=== PATIENT | male | born 1945 | race Caucasian/White ===

== ENCOUNTER 2017-01-15 16:12 | Inpatient (IN) ==
--- NOTE | 2017-01-15 16:38 | Cat Scan Report ---
CLINICAL INFORMATION: Code stroke COMPARISON: 11/30/2013 TECHNIQUE: Axial noncontrast-enhanced images through the brain. FINDINGS: No acute intracranial hemorrhage. No intra-axial hematoma. No focal attenuation abnormalities or areas of localized mass effect. No midline shift. There is a chronic lacunar infarction in the right basal ganglion. This is not acute but is new since 2013 Brainstem and cerebellum are negative. No extra-axial, intracranial abnormality. No subdural hematoma. No subarachnoid hemorrhage. Basilar cisterns are normal. No calvarial lesions. Temporal bones are negative. IMPRESSION: 1. No acute abnormality. 2. Nonacute right basal ganglion lacune Interpreted and Authenticated by: Americo Shahid 01/15/17
--- NOTE | 2017-01-15 16:40 | Emergency Department Note ---
Neuro HPI - General Chief Complaint: Stroke Symptoms Stated Complaint: stroke symptoms Time Seen by Provider: 01/15/17 16:36 Mode of arrival: ambulatory - History of Present Illness HPI Narrative: This patient had the sudden onset of left-sided weakness 30 minutes prior to arrival emergency room. He was so weak that he fell down and abraded his left holiness. When I initially saw him he did have some weakness in the left leg and a slight facial droop but by the time he returned from CT scan he was 100% completely back to normal. He does have a history of coronary disease with bypass grafting 6 years ago at age 65. No history of stroke. Long history of high blood pressure but he hasn't taken medication for a while. Patient used to work for [employer] and is supposed to taking aspirin and statins. No chest pain or heart irregularity. Onset (ago): minute(s) Timing confirmed by: spouse Location: speech, left face, left arm, left leg History of same: No Severity: moderate Quality: weak Improves with: time Worsens with: none Context: sudden onset On Anticoagulants: Yes (Taking a natural anticoagulant) Associated symptoms: Reports: denies other symptoms - Related Data Home Medications: Home Medications Medication Instructions Recorded Confirmed No Known Home Meds [No Known Home 01/15/17 01/15/17 Meds] Allergies/Adverse Reactions: Allergies Allergy/AdvReac Type Severity Reaction Status Date / Time acetaminophen Allergy Severe Shortness Verified 01/15/17 16:57 of Breath WITH LARGE DOSES (USE BENADRYL PREMED) amlodipine AdvReac Mild Dizziness Verified 01/15/17 19:41 Review of Systems Constitutional: Denies: fever Eyes: Denies: eye pain ENT ED: Denies: ear pain Cardiovascular: Denies: chest pain Respiratory: Denies: cough Gastrointestinal: Denies: abdominal pain Genitourinary: Denies: urgency Musculoskeletal: Denies: back pain Integumentary: Denies: rash Neurological: Denies: headache Past Medical History - Past Medical History Medical history: Reports: coronary artery disease, hyperlipidemia, hypertension Surgical history ED: Reports: angioplasty/stent, appendectomy, cholecystectomy, coronary bypass (CABG) Physical Exam - General Limitations: no limitations General appearance: alert, in no apparent distress - Head Head exam: atraumatic - Eye Eye exam: Present: normal appearance - ENT ENT exam: normal exam - Neck Neck exam: Present: normal inspection - Chest Chest inspection: Present: normal inspection - Respiratory Respiratory exam: Present: normal lung sounds bilaterally - Cardiovascular Cardiovascular exam: Present: regular rate, normal rhythm, normal heart sounds - Abdominal Exam Abdominal exam: Present: soft. Absent: distention, tenderness - Neurological Exam Neurological exam: Present: alert, oriented X3 - Expanded Neurological Exam Cranial nerves: facial sensation (V): Normal, facial palsy (VII): Normal Motor strength - LUE: 5/5 Motor strength - RUE: 5/5 Motor strength - LLE: 5/5 Motor strength - RLE: 5/5 - Psychiatric Psychiatric exam: Present: normal affect, normal mood - Skin Skin exam: Present: warm, dry, intact, normal color Course Vital Signs Temperature 99.1 F 01/15/17 16:43 Pulse Rate 75 01/15/17 16:43 Respiratory Rate 18 01/15/17 16:43 Blood Pressure 249/130 01/15/17 16:43 Pulse Oximetry (%) 97 01/15/17 16:43 Temperature 97.8 F 01/16/17 05:00 Pulse Rate 80 01/15/17 20:04 Respiratory Rate 17 01/16/17 05:59 Blood Pressure 156/104 01/16/17 05:59 Pulse Oximetry (%) 96 01/16/17 05:59 Neuro Symptoms/Deficit - Lab Data Lab results reviewed: Yes I reviewed the patient's lab results. Result diagrams: 01/16/17 04:05 01/16/17 04:05 Lab Results 01/15/17 01/15/17 01/15/17 Range/Units 16:14 16:14 16:14 WBC 8.5 (4.5-11.0) K/mcL RBC 5.56 (4.50-5.90) M/mcL Hgb 16.2 (13.5-16.5) g/dL Hct 48.0 (41.0-55.0) % POC Hct 50.0 (41.0-55.0) % MCV 86.4 (80.0-100.0) fL MCH 29.1 (26.0-34.0) pg MCHC 33.7 (31.0-36.0) g/dL RDW 12.9 (11.5-14.5) % Plt Count 266 (140-440) K/mcL MPV 9.1 (7.4-10.4) fL Gran % 53.8 (38.0-78.0) % Lymph % (Auto) 37.2 (15.5-49.0) % [place] % (Auto) 7.3 (1.0-12.0) % Eos % (Auto) 1.3 (0.0-7.0) % Baso % (Auto) 0.4 (0.0-2.0) % Gran # 4.6 (1.8-8.0) K/mcL Lymph # 3.2 (1.5-4.8) K/mcL [place] # 0.6 (0.1-0.9) K/mcL Eos # 0.1 (0.0-0.7) K/mcL Baso # 0 (0.0-0.3) K/mcL ESR (0-15) mm/hr POC PT 13.4 (11.9-14.5) sec PT (11.9-14.5) sec POC INR 1.1 (0.9-1.2) INR (0.9-1.1) APTT TNP POC Sodium 141 (133-145) mmol/L Sodium TNP POC Potassium 5.1 (3.3-5.1) mmol/L Potassium TNP POC Chloride 101 (96-108) mmol/L Chloride TNP Carbon Dioxide TNP POC Total CO2 29 (22-30) mmol/L Anion Gap TNP POC BUN 26 H (8-23) mg/dl BUN TNP Creatinine TNP POC Creatinine 1.1 (0.7-1.2) mg/dl GFR Calculation TNP Glucose TNP POC Glucose 132 H (70-105) mg/dL Calcium TNP POC WB Ioniz Calcium 1.08 L (1.16-1.32) mmol/L Total Bilirubin TNP AST TNP ALT TNP Alkaline Phosphatase TNP Troponin T C-Reactive Protein (0.0-0.8) mg/dl Total Protein TNP Albumin TNP Globulin TNP Albumin/Globulin Ratio TNP TSH (0.27-5.01) uIU/ml Urine Color Urine Appearance Urine pH (5.0-9.0) Ur Specific [place] (1.000-1.035) Urine Protein (NEG) mg/dL Urine Glucose (UA) (NEG) mg/dL Urine Ketones (NEG) mg/dL Urine Occult Blood (<0.03) mg/dL Urine Nitrate (NEG) Urine Bilirubin (NEG) mg/dL Urine Urobilinogen (NEG) mg/dL Ur Leukocyte Esterase (NEG) /uL Urine RBC (0-1) /hpf Urine WBC (0-4) /hpf Ur Squamous Epith Cells (0-4) /hpf Urine Bacteria (0) /hpf Urine Mucus (0) /hpf Ur Culture Indicated? 01/15/17 01/15/17 01/15/17 Range/Units 16:14 17:24 17:30 WBC (4.5-11.0) K/mcL RBC (4.50-5.90) M/mcL Hgb (13.5-16.5) g/dL Hct (41.0-55.0) % POC Hct (41.0-55.0) % MCV (80.0-100.0) fL MCH (26.0-34.0) pg MCHC (31.0-36.0) g/dL RDW (11.5-14.5) % Plt Count (140-440) K/mcL MPV (7.4-10.4) fL Gran % (38.0-78.0) % Lymph % (Auto) (15.5-49.0) % [place]iken % (Auto) (1.0-12.0) % Eos % (Auto) (0.0-7.0) % Baso % (Auto) (0.0-2.0) % Gran # (1.8-8.0) K/mcL Lymph # (1.5-4.8) K/mcL [place] # (0.1-0.9) K/mcL Eos # (0.0-0.7) K/mcL Baso # (0.0-0.3) K/mcL ESR (0-15) mm/hr POC PT (11.9-14.5) sec PT 13.5 (11.9-14.5) sec POC INR (0.9-1.2) INR 1.0 (0.9-1.1) APTT 29 POC Sodium (133-145) mmol/L Sodium POC Potassium (3.3-5.1) mmol/L Potassium POC Chloride (96-108) mmol/L Chloride Carbon Dioxide POC Total CO2 (22-30) mmol/L Anion Gap POC BUN (8-23) mg/dl BUN Creatinine POC Creatinine (0.7-1.2) mg/dl GFR Calculation Glucose POC Glucose (70-105) mg/dL Calcium POC WB Ioniz Calcium (1.16-1.32) mmol/L Total Bilirubin AST ALT Alkaline Phosphatase Troponin T TNP C-Reactive Protein (0.0-0.8) mg/dl Total Protein Albumin Globulin Albumin/Globulin Ratio TSH (0.27-5.01) uIU/ml Urine Color Yellow Urine Appearance Hazy Urine pH 7.0 (5.0-9.0) Ur Specific [place] 1.009 (1.000-1.035) Urine Protein Neg (NEG) mg/dL Urine Glucose (UA) Negative (NEG) mg/dL Urine Ketones Neg (NEG) mg/dL Urine Occult Blood 0.03 A (<0.03) mg/dL Urine Nitrate Neg (NEG) Urine Bilirubin Neg (NEG) mg/dL Urine Urobilinogen Neg (NEG) mg/dL Ur Leukocyte Esterase Neg (NEG) /uL Urine RBC 2 H (0-1) /hpf Urine WBC < 1 (0-4) /hpf Ur Squamous Epith Cells 0 (0-4) /hpf Urine Bacteria 0 (0) /hpf Urine Mucus Few (0) /hpf Ur Culture Indicated? No 01/15/17 01/15/17 01/15/17 Range/Units 17:30 17:30 17:30 WBC (4.5-11.0) K/mcL RBC (4.50-5.90) M/mcL Hgb (13.5-16.5) g/dL Hct (41.0-55.0) % POC Hct (41.0-55.0) % MCV (80.0-100.0) fL MCH (26.0-34.0) pg MCHC (31.0-36.0) g/dL RDW (11.5-14.5) % Plt Count (140-440) K/mcL MPV (7.4-10.4) fL Gran % (38.0-78.0) % Lymph % (Auto) (15.5-49.0) % [place]iken % (Auto) (1.0-12.0) % Eos % (Auto) (0.0-7.0) % Baso % (Auto) (0.0-2.0) % Gran # (1.8-8.0) K/mcL Lymph # (1.5-4.8) K/mcL [place]iken # (0.1-0.9) K/mcL Eos # (0.0-0.7) K/mcL Baso # (0.0-0.3) K/mcL ESR (0-15) mm/hr POC PT (11.9-14.5) sec PT (11.9-14.5) sec POC INR (0.9-1.2) INR (0.9-1.1) APTT POC Sodium (133-145) mmol/L Sodium 140 POC Potassium (3.3-5.1) mmol/L Potassium 4.4 POC Chloride (96-108) mmol/L Chloride 101 Carbon Dioxide 24 POC Total CO2 (22-30) mmol/L Anion Gap 15.0 POC BUN (8-23) mg/dl BUN 18 Creatinine 1.1 POC Creatinine (0.7-1.2) mg/dl GFR Calculation 68 Glucose 117 H POC Glucose (70-105) mg/dL Calcium 10.0 POC WB Ioniz Calcium (1.16-1.32) mmol/L Total Bilirubin 0.4 AST 22 ALT 26 Alkaline Phosphatase 87 Troponin T < 0.01 C-Reactive Protein (0.0-0.8) mg/dl Total Protein 8.6 H Albumin 4.6 Globulin 4.0 H Albumin/Globulin Ratio 1.2 TSH 1.54 (0.27-5.01) uIU/ml Urine Color Urine Appearance Urine pH (5.0-9.0) Ur Specific [place] (1.000-1.035) Urine Protein (NEG) mg/dL Urine Glucose (UA) (NEG) mg/dL Urine Ketones (NEG) mg/dL Urine Occult Blood (<0.03) mg/dL Urine Nitrate (NEG) Urine Bilirubin (NEG) mg/dL Urine Urobilinogen (NEG) mg/dL Ur Leukocyte Esterase (NEG) /uL Urine RBC (0-1) /hpf Urine WBC (0-4) /hpf Ur Squamous Epith Cells (0-4) /hpf Urine Bacteria (0) /hpf Urine Mucus (0) /hpf Ur Culture Indicated? 01/15/17 01/15/17 Range/Units 17:30 17:30 WBC (4.5-11.0) K/mcL RBC (4.50-5.90) M/mcL Hgb (13.5-16.5) g/dL Hct (41.0-55.0) % POC Hct (41.0-55.0) % MCV (80.0-100.0) fL MCH (26.0-34.0) pg MCHC (31.0-36.0) g/dL RDW (11.5-14.5) % Plt Count (140-440) K/mcL MPV (7.4-10.4) fL Gran % (38.0-78.0) % Lymph % (Auto) (15.5-49.0) % Aiken % (Auto) (1.0-12.0) % Eos % (Auto) (0.0-7.0) % Baso % (Auto) (0.0-2.0) % Gran # (1.8-8.0) K/mcL Lymph # (1.5-4.8) K/mcL Aiken # (0.1-0.9) K/mcL Eos # (0.0-0.7) K/mcL Baso # (0.0-0.3) K/mcL ESR 12 (0-15) mm/hr POC PT (11.9-14.5) sec PT (11.9-14.5) sec POC INR (0.9-1.2) INR (0.9-1.1) APTT POC Sodium (133-145) mmol/L Sodium POC Potassium (3.3-5.1) mmol/L Potassium POC Chloride (96-108) mmol/L Chloride Carbon Dioxide POC Total CO2 (22-30) mmol/L Anion Gap POC BUN (8-23) mg/dl BUN Creatinine POC Creatinine (0.7-1.2) mg/dl GFR Calculation Glucose POC Glucose (70-105) mg/dL Calcium POC WB Ioniz Calcium (1.16-1.32) mmol/L Total Bilirubin AST ALT Alkaline Phosphatase Troponin T C-Reactive Protein < 0.3 (0.0-0.8) mg/dl Total Protein Albumin Globulin Albumin/Globulin Ratio TSH (0.27-5.01) uIU/ml Urine Color Urine Appearance Urine pH (5.0-9.0) Ur Specific [place] (1.000-1.035) Urine Protein (NEG) mg/dL Urine Glucose (UA) (NEG) mg/dL Urine Ketones (NEG) mg/dL Urine Occult Blood (<0.03) mg/dL Urine Nitrate (NEG) Urine Bilirubin (NEG) mg/dL Urine Urobilinogen (NEG) mg/dL Ur Leukocyte Esterase (NEG) /uL Urine RBC (0-1) /hpf Urine WBC (0-4) /hpf Ur Squamous Epith Cells (0-4) /hpf Urine Bacteria (0) /hpf Urine Mucus (0) /hpf Ur Culture Indicated? - Radiology Data Radiology results reviewed: Yes I reviewed the patient's radiology results. (CT scan was normal) Disposition Clinical Impression: TIA (transient ischemic attack) Disposition: Xfer As Inpt ([facility]) Condition: Good
[2017-01-15] MEDS ORDERED: niCARdipine 25 MG in 0.9 % SODIUM CHLORIDE 240 ML IV SCH ×2 (16:45→20:00)
[2017-01-15 16:47] LABS: Basophils # (Auto) 0 K/mcL (0.0-0.3); Basophils % (Auto) 0.4 % (0.0-2.0); Eosinophils # (Auto) 0.1 K/mcL (0.0-0.7); Eosinophils % (Auto) 1.3 % (0.0-7.0); Granulocytes % (Auto) 53.8 % (38.0-78.0); Lymphocytes # (Auto) 3.2 K/mcL (1.5-4.8); Lymphocytes % (Auto) 37.2 % (15.5-49.0); Mean Cell Volume 86.4 fL (80.0-100.0); Mean Corpuscular HGB Conc 33.7 g/dL (31.0-36.0); Mean Corpuscular Hemoglobin 29.1 pg (26.0-34.0); Monocytes # (Auto) 0.6 K/mcL (0.1-0.9); Monocytes % (Auto) 7.3 % (1.0-12.0); Platelet Count 266 K/mcL (140-440); RBC 5.56 M/mcL (4.50-5.90); Red Cell Distribution Width 12.9 % (11.5-14.5)
[2017-01-15] MEDS ORDERED: ATORVASTATIN 40 MG TABLET PO ONE (17:10)
[2017-01-15] MEDS ORDERED: ASPIRIN 325 MG ENTERIC COATED TABLET PO ONE (17:11)
[2017-01-15] MEDS ORDERED: ASPIRIN 81 MG TAB.CHEW ONE (17:16)
[2017-01-15] MEDS ORDERED: POLYETHYLENE GLYCOL 3350 17 GM PACKET PO PRN (18:01)
[2017-01-15] MEDS ORDERED: BISACODYL 10 MG SUPP.RECT PR PRN (18:01)
[2017-01-15] MEDS ORDERED: POTASSIUM CHLORIDE 20 MEQ PACKET PO PRN (18:01)
[2017-01-15] MEDS ORDERED: MAGNESIUM SULFATE 2 GM/50 ML BAG IV PRN (18:01)
[2017-01-15] MEDS ORDERED: ONDANSETRON 4 MG/2 ML VIAL IV PRN (18:01)
[2017-01-15] MEDS ORDERED: MAGNESIUM HYDROXIDE 30 ML ORAL.SUSP PO PRN (18:01)
[2017-01-15 18:10] LABS: Appearance,Urine HAZY; Bacteria,Urine 0 /hpf (0); Bilirubin,Urine NEG (NEG); Color,Urine YELLOW; Glucose,Urine (UA) NEGATIVE (NEG); Leukocyte Esterase,Urine NEG /uL (NEG); Mucus,Urine FEW /hpf (0); Nitrate,Urine NEG (NEG); Protein,Urine NEG (NEG); Specific Gravity,Urine 1.009 (1.000-1.035); Urine Blood 0.03 mg/dL (<0.03); Urine RBC 2 /hpf (0-1); Urine Squamous Epithelial Cell 0 /hpf (0-4); Urine WBC < 1 /hpf (0-4); Urobilinogen,Urine NEG (NEG)
[2017-01-15 18:26] LABS: ALT/SGPT 26 U/l (0-40); Albumin 4.6 gm/dL (3.2-5.2); Albumin/Globulin Ratio 1.2 (1.0-2.3); Alkaline Phosphatase 87 U/L (39-117); Blood Urea Nitrogen 18 mg/dl (8-23)
[2017-01-15] MEDS: 0.9 % SODIUM CHLORIDE 1,000 ML IV SCH (18:30)
[2017-01-15] MEDS ORDERED: SENNOSIDES/DOCUSATE SODIUM 1 TAB TABLET PO SCH (21:00)
[2017-01-15] MEDS: 0.9 % SODIUM CHLORIDE 10 ML SYRINGE IV SCH (21:28)
[2017-01-15] MEDS: CYANOCOBALAMIN (VITAMIN B-12) 500 MCG TABLET PO SCH (21:52)
[2017-01-15] MEDS: DOCUSATE SODIUM 100 MG CAPSULE PO SCH (21:53)
[2017-01-16] MEDS: 0.9 % SODIUM CHLORIDE 10 ML SYRINGE IV SCH ×3 (04:53→20:41)
[2017-01-16 05:25] LABS: Mean Cell Volume 86.5 fL (80.0-100.0); Mean Corpuscular HGB Conc 33.7 g/dL (31.0-36.0); Mean Corpuscular Hemoglobin 29.1 pg (26.0-34.0); Platelet Count 284 K/mcL (140-440); RBC 5.65 M/mcL (4.50-5.90); Red Cell Distribution Width 13.4 % (11.5-14.5)
[2017-01-16 06:15] LABS: ALT/SGPT 21 U/l (0-40); Albumin 4.1 gm/dL (3.2-5.2); Albumin/Globulin Ratio 1.3 (1.0-2.3); Alkaline Phosphatase 64 U/L (39-117); Bilirubin,Direct < 0.2 mg/dL (0.0-0.3); Blood Urea Nitrogen 12 mg/dl (8-23); Gamma Glutamyl Transpeptidase 21 U/L (8-61); Magnesium 2.2 mg/dL (1.6-2.5); Uric Acid 5.2 mg/dL (2.5-8.0)
[2017-01-16] MEDS ORDERED: PANTOPRAZOLE 40 MG TABLET PO SCH (07:30)
[2017-01-16] MEDS ORDERED: LORazepam 2 MG/ML VIAL IV ONE (07:33)
[2017-01-16 07:44] LABS: Eosinophils % (Manual) 2 % (0-7); Lymphocytes % 39 % (15-49); Monocytes % (Manual) 8 % (1-12); Myelocytes % 1 % (0-0); Platelet Estimate NORMAL (NORMAL); RBC Morphology NORMAL (NORMAL); Segmented Neutrophils % 50 % (38-78)
[2017-01-16] MEDS ORDERED: MULTIVIT,THER IRON,CA,FA & MIN 1 TABLET PO SCH (09:00)
[2017-01-16] MEDS ORDERED: ASPIRIN 325 MG ENTERIC COATED TABLET PO SCH (09:00)
--- NOTE | 2017-01-16 09:39 | History and Physical Report ---
DATE OF ADMISSION: 01/15/2017 REASON FOR ADMISSION: Sudden left-sided weakness, fall, near syncope. HISTORY OF CHIEF COMPLAINT: This is a 71-year-old with known history of hypertension who quit taking his medication as he believes in naturopathic medications. He has been followed by Dr. Christian Cantu as an outpatient, and as per records he last saw him in 04/2016 with elevated blood systolic pressures of 180 but refused to use the lisinopril and amlodipine due to symptoms of dizziness despite no clear evidence of hypotension. Today the patient had a fall after he had sudden onset of weakness on the left side sustaining injury to the head. He was brought into [facility] ER. Initial workup was significant for NIH score of over 8. However, symptoms shortly resolved except for residual left-sided facial droop. Initial head CT was unremarkable with no evidence of hemorrhage. The patient was offered aspirin and statin, and after much discussion he finally agreed to one dose of aspirin and statin. He has significant reservations against use of either of the medications due to side effect profile. He was, however, agreeable for further evaluation, including a detailed stroke workup with CT angiogram of head and neck and MRI of brain, along with echocardiogram. During my discussion with the patient and his family, he appeared reluctant to use a statin in future. I went into detail about risk of subsequent CVA and the modalities of treatment being antiplatelets and statin for its pleiotropic effect and failing to do so will put him at a grave risk for future CVA. He clearly understands the risk and at this time refuses to take anymore dose other than initial dose of aspirin and statin. Other than that, he denies diplopia. He does endorse to urinary incontinence during the fall episode but no witnessed seizure. He denies thunderclap headache, tearing neck pain, chest pain or back pain. He further denies unilateral vision loss, halo. He also denies diarrhea, chest pain, shortness of breath, productive sputum, lower extremity swelling. His blood pressures have been hovering around 240/140 diastolic. He endorses his normal blood pressure is around 180-190, and he stopped taking his antihypertensive roughly a month ago. PAST MEDICAL HISTORY: History of hypertension. ALLERGIES: 1. ACETAMINOPHEN. 2. AMLODIPINE. SOCIAL HISTORY: Denies smoking, alcoholism or substance abuse. He is and lives in the [place]. He is a FULL CODE STATUS. He sees primary care physician, Christian Cantu MD. CURRENT MEDICATIONS: The patient has discontinued all of his medications. A list will be obtained from primary care physician. FAMILY HISTORY: Reviewed from medical record. History of AMI in father. CODE STATUS: FULL CODE. PHYSICAL EXAMINATION: GENERAL: The patient is significantly anxious, hypertensive. BMI 27. Height 6 feet. Obvious left-sided facial droop. VITAL SIGNS: Blood pressure 240/137, respiratory rate 16, temperature 99.1, pulse 80, saturation 97% on room air. HEENT: Pupils slightly asymmetric with left pupil larger than 1 mm compared to right pupil. Left facial droop but head normocephalic, atraumatic. No ear or nose discharge. NECK: No lymphadenopathy, no bruit. HEART: S1, S2, regular rhythm. Ejection systolic murmur grade 1. CHEST: Diminished breath sounds at bases, but symmetrical breath sounds bilaterally. ABDOMEN: Soft and nontender. LOWER EXTREMITIES: No cyanosis or clubbing. No joint swelling. SKIN: No suspicious lesions. PSYCHIATRIC: Anxious, but no agitation, hallucination, or delusion. NEURO: Normal higher function with memory, orientation, registration, recall, judgment without hallucination or delusion. Reflexes are hyperreflexive on the left side. Tone symmetrical. Strength: Subtle weakness. However, grade 5 both upper and lower left side. Normal strength upper and lower extremity, right side. Cerebellar signs absent. Sensation is preserved. Cranial nerves: Left-sided facial weakness. However, normal gag, swallowing, eye movements. LABS AND IMAGING: MRI brain/MR angiogram head and neck pending. CT head: No evidence of acute process. EKG: Sinus rhythm, left ventricular hypertrophy along with left axis deviation. ASSESSMENT AND PLAN: A 71-year-old admitted with acute CVA involving the right hemisphere with left facial droop. 1. Acute CVA involving the right hemisphere with left facial droop. Most of the left-sided weakness has since resolved. The patient was started on aspirin and statin, extensive workup including MRI brain, MR angiogram head and neck, along with echocardiogram pending. We will continue patient on tele-monitoring and target systolics around 180. 2. Hypertensive crisis. Admit to ICU. Patient was started on nicardipine drip. Target systolics around 160 to 180 in light of high-risk hemorrhagic conversion of CVA. PLAN FOR TODAY: 1. Admit as inpatient in ICU. 2. Hypertension management. 3. Stroke workup as above. 4. Aspirin and statin. However, patient refusing any further doses. We will continue to aggressively counselor/art therapist. Overall, a very high-complexity admit in a patient with uncontrolled hypertension in hypertensive crisis and acute CVA mandating hospitalization and ICU management. [email or web address] Job ID: [id number] Doc ID: [id number] Cuauhtemoc Motta MD MTDTova
[2017-01-16] MEDS: CYANOCOBALAMIN (VITAMIN B-12) 500 MCG TABLET PO SCH ×2 (10:30→20:41)
[2017-01-16] MEDS: DOCUSATE SODIUM 100 MG CAPSULE PO SCH ×2 (10:34→20:42)
--- NOTE | 2017-01-16 11:27 | Magnetic Resonance Report ---
CLINICAL INFORMATION: Facial weakness. Probable cerebral infarction. TECHNIQUE: Sagittal, axial, coronal images through the brain. Scanning performed both before and after intravenous contrast administration COMPARISON: Brain CT scan dated 01/15/2017 and 11/30/2013 FINDINGS: No restricted diffusion. No acute infarction. Susceptibility images are abnormal. Multiple foci of susceptibility within both cerebral hemispheres, brainstem, and cerebellum. These are small and punctate. 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 Clinical correlation for history of previous head injury recommended. Multiple cavernous angiomas are considered unlikely due to the small punctate size of these lesions. T2-weighted images demonstrate a 5 mm left cerebellar lacunar infarction. There is white matter abnormality with increased signal intensity in both a periventricular and subcortical distribution within both cerebral hemispheres. Appearance is most consistent with small vessel ischemic change. Overall brain volume is normal. No hydrocephalus. No enhancing intra-axial lesions. No localized mass effect. No midline shift. No pathologic leptomeningeal or dural enhancement. Normal flow void within vessels at the base of the brain. Orbits and facial soft tissues are negative. Skull base is within normal limits. IMPRESSION: 1. Multiple punctate areas of susceptibility consistent with diffuse external injury and old head injury. 2. 5 mm lacunar infarction in left cerebellar hemisphere 3. White matter abnormality consistent small vessel ischemic change in both cerebral hemispheres. Interpreted and Authenticated by: Americo Shahid 01/16/17
--- NOTE | 2017-01-16 11:49 | Magnetic Resonance Report ---
CLINICAL INFORMATION: Left-sided weakness TECHNIQUE: Routine noncontrast MRA of the [place] COMPARISON: None. FINDINGS: Suboptimal evaluation due to patient motion. All of the intracranial vessels appear irregular but I believe this is artifactual and not related to diffuse atherosclerosis or vasospasm. High-grade, subtotal occlusion of the distal left vertebral artery at the vertebrobasilar junction. Right vertebral artery is patent. Basilar artery is patent. It appears irregular on present examination but this is probably artifact. No true stenosis. Posterior inferior cerebellar arteries are visualized bilaterally. No definite occlusion. Superior cerebellar arteries are visualized. Distal cervical and petrous portions of the internal carotid arteries appear normal bilaterally. Cavernous segment of the right internal carotid artery is negative. Focal irregularity and probable stenosis in the cavernous segment of the left internal carotid artery. This is a difficult area to accurately evaluate with MRA but it appears significantly narrowed as compared with the right side on source images. Supraclinoid segments of the internal carotid arteries are negative bilaterally. M1 segments of the middle cerebral arteries and A1 segments of the anterior cerebral arteries are negative. IMPRESSION: 1. Poor quality examination due to patient motion 2. 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 Significant luminal irregularity in the cavernous segment of the left internal carotid artery with focal high-grade stenosis. Interpreted and Authenticated by: Americo Shahid 01/16/17
--- NOTE | 2017-01-16 11:53 | Magnetic Resonance Report ---
CLINICAL INFORMATION: Possible cerebral infarction TECHNIQUE: Postcontrast MRA of the cervical great vessels COMPARISON: None. FINDINGS: Left common carotid artery and left internal carotid artery are negative. No focal stenosis. No significant luminal irregularity. Right common carotid artery is negative. There is 50% stenosis at the origin of the right internal carotid artery. There is also 50% stenosis at the origin of the right external carotid artery. Vertebral arteries are antegrade patent and within normal limits. Aortic arch is normal. Origin of the left subclavian artery, right subclavian artery, innominate artery, and common carotid arteries bilaterally are normal. IMPRESSION: 50% diameter stenosis in the proximal right internal carotid artery Interpreted and Authenticated by: Americo Shahid 01/16/17
[2017-01-16] MEDS: 0.9 % SODIUM CHLORIDE 1,000 ML IV SCH (12:08)
[2017-01-16] MEDS ORDERED: amLODIPine 5 MG TABLET PO SCH (12:15)
[2017-01-16] MEDS ORDERED: LISINOPRIL 20 MG TABLET PO SCH (12:15)
[2017-01-16] MEDS ORDERED: MAGNESIUM HYDROXIDE 30 ML ORAL.SUSP PO PRN (19:01)
[2017-01-16] MEDS ORDERED: POLYETHYLENE GLYCOL 3350 17 GM PACKET PO PRN (19:01)
[2017-01-16] MEDS ORDERED: BISACODYL 10 MG SUPP.RECT PR PRN (19:01)
[2017-01-16] MEDS ORDERED: MAGNESIUM SULFATE 2 GM/50 ML BAG IV PRN (19:01)
[2017-01-16] MEDS ORDERED: POTASSIUM CHLORIDE 20 MEQ PACKET PO PRN (19:01)
[2017-01-16] MEDS ORDERED: ONDANSETRON 4 MG/2 ML VIAL IV PRN (19:01)
[2017-01-16] MEDS ORDERED: SENNOSIDES/DOCUSATE SODIUM 1 TAB TABLET PO SCH (21:00)
--- NOTE | 2017-01-16 23:01 | Internal Med Progress Note ---
Medical - PN: Subj Patient information: Note initiated : 01/16/17 at 11:01 pm Service Date, if different from initiated Date: [] Patient: Rey Nieves 71 y/o M admitted on 01/15/17 for Stroke Symptoms/CVA. Chief Complaint: [] Interval history: 01/15 patient admitted with left-sided weakness fall/incontinence with likely CVA. Initially denies score 8. Symptoms resolved in ER.-negative head CT noncontrast. Admitted for evaluation. Started on aspirin and statin. Patient in hypertensive crisis with blood pressures around 240s. Started on nicardipine drip. Admitted to ICU. Patient has been reluctant to take his home medications. Case was discussed with patient's primary care physician. He last saw PCP in April and has been reluctant to take his meds due to untoward side effect( dizziness). He endorses to quitting all meds a month ago. He likes math hepatic medication and does not want aspirin and statin however agrees for one does on admit. 01/16 MRI brain 0.5 cm cerebellar CVA. No acute CVA. Vertebral and carotid artery high-grade stenosis noted. Recommend vascular surgery consult as outpatient. Recommend aspirin and statin. Patient now agrees to take for a few doses. discussed the risk of future stroke given existing microvascular ischemic changes and one 5 cm cerebellar CVA and high risk recurrent strokes. echocardiogram pending. nicardipine drip discontinued after initiation of lisinopril and amlodipine at home dose. Systolics around 180. Possible discharge in 24 hours - Constitutional Vitals: Vital Signs Temp Pulse Resp BP Pulse Ox 97.4 F L 79 20 159/95 96 01/16/17 19:55 01/16/17 15:30 01/16/17 19:55 01/16/17 19:55 01/16/17 19:55 Period Temp Pulse Resp BP Sys/Valdez Pulse Ox Last 24 Hr 97.4 F-98.5 F 65-84 11-26 156-200/90-118 93-99 Intake and Output 01/16/17 01/16/17 01/17/17 13:59 21:59 05:59 Intake Total 799 / 799 24 / 24 Output Total 300 / 300 Balance 499 / 499 24 / 24 Weight 202 lb 204 lb Patient Weight 01/17/17 05:59 Weight 204 lb Intake & Output: Intake & Output 01/16/17 01/16/17 01/17/17 13:59 21:59 05:59 Intake Total 799 / 799 24 Output Total 300 / 300 Balance 499 / 499 Weight 202 lb 204 lb Intake: IV 799 / 799 Sodium Chloride 0.9% 1, 778 / 778 000 ml @ 50 mls/hr IV . Q20H [facility] Rx#:[id number] Cardene 25 MG In Sodium Chloride 0.9% 240 ml @ 5 MG/HR 50 mls/hr IV ONCE ARELY Rx#:[id number] Output: Void Amount 300 / 300 Other: # Voids 1 # Bowel Movements 1 General appearance: cooperative, no acute distress Exam: mild leftfacial droop no anxiety Telemetry no events Nonlabored breathing Medical - PN: Obj Da - Labs CBC & Chem 7: 01/17/17 04:20 01/17/17 04:20 Labs: Abnormal Lab Results 01/16/17 01/16/17 04:05 04:05 Myelocytes % 1 H Glucose 117 H Triglycerides 152 H Meds: Medications Amlodipine Besylate (Norvasc) 2.5 mg PO DAILY [facility] Aspirin (Ecotrin) 325 mg PO DAILY [facility] Bisacodyl (Dulcolax) 10 mg CA Q2-3DAYS PRN PRN Reason: Constipation Cyanocobalamin (Vitamin B-12) 1,000 mcg PO BID [facility] Stop: 01/20/17 09:01 Last Admin: 01/16/17 20:41 Dose: 1,000 mcg Docusate Sodium (Colace) 100 mg PO BID [facility] Last Admin: 01/16/17 20:42 Dose: Not Given Magnesium Sulfate (Magnesium Sulfate) 2 gm in 50 mls @ 50 mls/hr IV UD PRN PRN Reason: MG = or < 1.7 Iron Carb/Multivit/[place]/Folic Acid (Multivitamin W/Minerals) 1 tab PO DAILY [facility] Lisinopril (Zestril) 20 mg PO DAILY [facility] Magnesium Hydroxide (Milk Of Magnesia) 30 ml PO HSP PRN PRN Reason: Constipation Ondansetron HCl (Zofran) 4 mg IV Q4-6HP PRN PRN Reason: Nausea And Vomiting Pantoprazole Sodium (Protonix) 40 mg PO QAMAC [facility] Polyethylene Glycol (Miralax) 17 gm PO DAILYP PRN PRN Reason: Constipation Potassium Chloride (Klor-Con) 40 meq PO DAILYP PRN PRN Reason: K+ < 3.5 Senna/Docusate Sodium (Senna Plus Tablet) 1 tab PO HS [facility] Last Admin: 01/16/17 20:42 Dose: Not Given Sodium Chloride (Saline Flush) 10 ml IV Q8 [facility] Last Admin: 01/16/17 20:41 Dose: 10 ml Medical - PN: A/P - Time Spent With Patient Total time spent is greater than 50% in coordination of care (as documented) at patient's floor/unit and/or counseling patient: 25 - 35 minutes (1) TIA (transient ischemic attack) Status: Acute Assessment and plan: * TIA-symptoms fully resolved. start aspirin and statin. Patient willing to take a few doses. Patient believes in naturopathic treatment * hypertensive crisis with TIA- initially on nicardipine drip. Started on home dose TOSHA inhibitor/calcium channel meg. Systolics around 180 down from 240. recommend outpatient follow-up with PCP for optimization of HTN and up titration of medications * History of CVA-0.5 cm cerebellar lacunar infarct. target LDL 70 current LDL 121. however patient unwilling to take statin for longer duration plan * Continue aspirin and statin * Antihypertensives at home dose * transfer to telemetry * Possible discharge in 24 hours Current Visit: Yes Medical - PN: Qual - Stroke Onset of Symptoms Date: 01/15/17 Onset of Symptoms Time: 15:45 Symptom Onset Unknown: No - VTE Deep Vein Thrombosis/Pulmonary Embolism Present on Admission: No
[2017-01-17 05:47] LABS: Mean Cell Volume 86.9 fL (80.0-100.0); Mean Corpuscular HGB Conc 33.7 g/dL (31.0-36.0); Mean Corpuscular Hemoglobin 29.3 pg (26.0-34.0); Platelet Count 270 K/mcL (140-440); RBC 5.49 M/mcL (4.50-5.90); Red Cell Distribution Width 13.1 % (11.5-14.5)
[2017-01-17 06:20] LABS: ALT/SGPT 20 U/l (0-40); Albumin 3.5 gm/dL (3.2-5.2); Albumin/Globulin Ratio 1.1 (1.0-2.3); Alkaline Phosphatase 63 U/L (39-117); Bilirubin,Direct < 0.2 mg/dL (0.0-0.3); Blood Urea Nitrogen 18 mg/dl (8-23); Gamma Glutamyl Transpeptidase 18 U/L (8-61); HDL Cholesterol 39 mg/dl (>40); LDL Cholesterol,Calculated 121 mg/dl (SEE CHART); Magnesium 2.1 mg/dL (1.6-2.5); Uric Acid 6.1 mg/dL (2.5-8.0)
[2017-01-17] MEDS: 0.9 % SODIUM CHLORIDE 10 ML SYRINGE IV SCH (06:21)
[2017-01-17] MEDS ORDERED: PANTOPRAZOLE 40 MG TABLET PO SCH (07:30)
--- NOTE | 2017-01-17 07:30 | Echocardiogram Report ---
ECHOCARDIOGRAM: 2-D and M-mode echocardiography with cardiac Doppler and color flow imaging were performed with a [employer] Aplio MX. Indication is CVA, hypertensive crisis, and status post 4-vessel CABG. Overall size of the four cardiac chambers and aortic root appeared normal. LV wall thickness appeared mildly increased. Systolic performance appeared normal. Estimated ejection fraction is 60%. Specifically, no regional contraction abnormalities were appreciated. The aortic root appeared sclerotic. The aortic valve appeared lightly to moderately calcified. Valve opening appeared normal and there was no evidence for aortic stenosis or aortic regurgitation by Doppler interrogation. The mitral and tricuspid valves appear unremarkable. Doppler interrogation of LV inflow disclosed prolonged early diastolic deceleration time and ''a'' wave dominance indicating delayed LV relaxation. There was no evidence for mitral regurgitation. Pulmonary venous interrogation disclosed normal ''s'' wave dominance. The pulmonic valve showed normal ''a'' wave amplitude. Pulmonary artery acceleration time was difficult to measure. There was no evidence for pulmonic stenosis. Pulmonic regurgitation, probably mild (1+), was demonstrated. There was no evidence for tricuspid regurgitation. No intracardiac shunting was appreciated. There was no evidence of pericardial effusion. The IVC was of normal diameter and showed normal respiratory variation. Sinus rhythm, rate 72, was present. CONCLUSION:Aortic root sclerosis. Light to moderate aortic leaflet calcification. Mild concentric LVH with normal systolic performance. (See accompanying M-mode and Doppler reports for quantitation.) ECHOCARDIOGRAPHY M-MODE CALCULATIONS: HT: 72 WT: 220 BSA: 2.22 m2 NORMALS AORTA: AORTIC ROOT 3.4 2.0-3.7 cm LEFT ATRIUM 3.0 1.9-4.0 cm MITRAL VALVE: EXCURSION 1.7 1.9-2.7 cm EPSS 0.8 <0.5 cm LT VENTRICLE: LVID (ED) 4.3 3.5-5.7 cm LVID (ES) 3.1 SEPTAL THICKNESS 1.2 0.6-1.1 cm SEPTAL EXCURSION 0.2 0.3-0.8 cm LVPW THICKNESS 1.2 0.6-1.1 cm LVPW EXCURSION 0.8 0.9-1.4 cm MINOR AXIS FS 2.8 25%-40% RT VENTRICLE: RVID (ED) -- 0.9-2.6 cm(up to 3cm if LLD) QUALITATIVE DOPPLER FLOW STUDIES MITRAL VALVE -- AORTIC VALVE -- TRICUSPID VALVE -- PULMONIC VALVE CA, probably mild (1+) QUANTITATIVE DOPPLER FLOW STUDIES SAMPLE SITES VELOCITIES PEAK PRESSURE VALVE AREA and/or VALVE WINDOW (PEAK,M/SEC) DROP (GRADIENT) PRESSURE HALF-TIME MV (Diastole) 0.5 0.8 -- -- MV (Systole) -- -- -- AO (Diastole) -- -- -- AO (Systole) 1.4 -- -- TV (Systole) -- -- -- PV (Systole) 1.0 -- -- PV (Diastole) -- LWG:jac Job ID: [id number] Doc ID: [id number] Jose R France MD
[2017-01-17 08:20] LABS: Eosinophils % (Manual) 3 % (0-7); Lymphocytes % 30 % (15-49); Monocytes % (Manual) 4 % (1-12); Platelet Estimate NORMAL (NORMAL); RBC Morphology NORMAL (NORMAL); Segmented Neutrophils % 63 % (38-78)
[2017-01-17] MEDS: CYANOCOBALAMIN (VITAMIN B-12) 500 MCG TABLET PO SCH (08:31)
[2017-01-17] MEDS: DOCUSATE SODIUM 100 MG CAPSULE PO SCH (08:32)
[2017-01-17] MEDS ORDERED: MULTIVIT,THER IRON,CA,FA & MIN 1 TABLET PO SCH (09:00)
[2017-01-17] MEDS ORDERED: LISINOPRIL 20 MG TABLET PO SCH (09:00)
[2017-01-17] MEDS ORDERED: amLODIPine 5 MG TABLET PO SCH (09:00)
[2017-01-17] MEDS ORDERED: ASPIRIN 325 MG ENTERIC COATED TABLET PO SCH (09:00)
--- NOTE | 2017-01-17 09:32 | Discharge Summary ---
Medical - DS: Prov Patient information: Note initiated : 01/17/17 at 9:29 am Service Date, if different from initiated Date: [] Patient: Rey Nieves 71 y/o M admitted on 01/15/17 for Stroke Symptoms/CVA. Chief Complaint: [] Date of admission: 01/15/17 17:55 Discharge date: 01/17/17 Primary care physician: [f_Reg Prim Care Provider] Medical - DS: Meds - Discharge Medications Prescriptions: Aspirin [Ecotrin] 325 mg PO DAILY #30 tab.ec Atorvastatin [Lipitor] 20 mg PO HS #30 tablet Active and Home Medications: Home Medications Aspirin [Ecotrin] 325 mg PO DAILY #30 tab.ec 01/17/17 [Rx Last Taken Unknown] Atorvastatin [Lipitor] 20 mg PO HS #30 tablet 01/17/17 [Rx Last Taken Unknown] Lisinopril [Zestril] 20 mg PO DAILY tablet 01/17/17 [Rx Last Taken Unknown] amLODIPine [Norvasc] 2.5 mg PO DAILY tablet 01/17/17 [Rx Last Taken Unknown] Medical - DS: Hosp Hospital course: DISCHARGE DIAGNOSIS * TIA-symptoms fully resolved. continue aspirin and statin. Patient willing to take a few doses. Patient believes in naturopathic treatment and have self discontinued his prior antihypertensives and carries significant reservation for allopathic medications. MRI brain 0.5 cm lacunar cerebellar CVA. MR angiogram - internal carotid and vertebral artery stenosis mandating vascular surgery consult. recommend continuing aspirin and statin and close follow-up with PCP. * Hypertensive crisis with TIA- initially on nicardipine drip. now on home dose TOSHA inhibitor/CCB. systolics around 160-180. recommend outpatient follow- up with PCP for optimization of HTN and up titration of medications * nicotine dependence-aggressive counseling for smoking cessation [facility] COURSE Mr. Nieves is a 71 year old male 01/15 patient admitted with left-sided weakness fall/incontinence with likely CVA. Initially denies score 8. Symptoms resolved in ER.-negative head CT noncontrast. Admitted for evaluation. Started on aspirin and statin. Patient in hypertensive crisis with blood pressures around 240s. Started on nicardipine drip. Admitted to ICU. Patient has been reluctant to take his home medications. Case was discussed with patient's primary care physician. He last saw PCP in April and has been reluctant to take his meds due to untoward side effect( dizziness). He endorses to quitting all meds a month ago. He likes math hepatic medication and does not want aspirin and statin however agrees for one does on admit. 01/16 MRI brain 0.5 cm cerebellar CVA. No acute CVA. Vertebral and carotid artery high-grade stenosis noted. Recommend vascular surgery consult as outpatient. Recommend aspirin and statin. Patient now agrees to take for a few doses. discussed the risk of future stroke given existing microvascular ischemic changes and one 5 cm cerebellar CVA and high risk recurrent strokes. echocardiogram pending. nicardipine drip discontinued after initiation of lisinopril and amlodipine at home dose. Systolics around 180. Possible discharge in 24 hours 01/17- patient discharging home with follow-up per PCP/vascular surgery follow- up recommendation in 2-4 weeks. Advised aspirin and statin which patient is willing to take for a few days. will be continued on home dose lisinopril/ amlodipine. detailed discharge instructions as below Discharge diagnosis: . - Time Spent with Patient Total time spent providing and/or coordinating discharge services: Greater than 30 minutes Medical - DS: Exam - Constitutional Vitals: Vital Signs Temp Pulse Pulse Resp BP BP BP 01/17/17 04:00 98.8 F 20 174/100 01/16/17 23:57 98.8 F 20 01/16/17 19:55 97.4 F L 20 159/95 01/16/17 19:01 22 173/97 01/16/17 19:00 22 01/16/17 18:31 26 H 167/103 01/16/17 18:30 17 01/16/17 18:01 21 173/98 01/16/17 18:00 24 173/98 01/16/17 17:31 20 164/111 01/16/17 17:30 16 01/16/17 17:02 175/114 01/16/17 17:00 17 175/114 01/16/17 16:31 18 183/103 01/16/17 16:30 20 01/16/17 16:05 22 01/16/17 16:01 20 174/118 01/16/17 16:00 97.6 F 01/16/17 15:59 17 05/17/17 15:34 183/107 01/16/17 15:30 79 19 183/107 01/16/17 15:01 18 178/115 01/16/17 15:00 73 19 178/115 01/16/17 14:31 19 175/115 01/16/17 14:30 76 19 175/115 01/16/17 14:01 18 180/110 01/16/17 14:00 82 18 180/110 01/16/17 13:31 24 192/110 01/16/17 13:30 78 20 192/110 01/16/17 13:01 19 192/107 01/16/17 13:00 84 20 192/107 01/16/17 12:31 20 183/97 01/16/17 12:30 75 19 183/97 01/16/17 12:02 17 185/110 01/16/17 12:01 13 01/16/17 12:00 97.7 F 19 185/110 01/16/17 11:31 72 19 179/109 01/16/17 11:30 76 77 21 179/109 01/16/17 11:16 78 19 185/104 01/16/17 11:15 76 25 H 01/16/17 11:01 72 16 171/108 01/16/17 11:00 73 74 21 171/108 01/16/17 10:46 80 16 177/107 01/16/17 10:45 74 16 01/16/17 10:31 72 15 173/106 01/16/17 10:30 75 73 16 173/106 01/16/17 10:16 72 11 L 168/106 01/16/17 10:15 73 18 01/16/17 10:08 73 18 166/108 01/16/17 10:02 72 23 166/108 01/16/17 10:01 19 01/16/17 09:50 200/113 BP Pulse Ox 01/17/17 04:00 97 01/16/17 23:57 182/92 97 01/16/17 19:55 96 01/16/17 19:01 01/16/17 19:00 01/16/17 18:31 01/16/17 18:30 01/16/17 18:01 01/16/17 18:00 96 01/16/17 17:31 01/16/17 17:30 01/16/17 17:02 01/16/17 17:00 96 01/16/17 16:31 01/16/17 16:30 01/16/17 16:05 01/16/17 16:01 01/16/17 16:00 96 01/16/17 15:59 01/16/17 15:34 01/16/17 15:30 97 01/16/17 15:01 01/16/17 15:00 97 01/16/17 14:31 01/16/17 14:30 97 01/16/17 14:01 01/16/17 14:00 97 01/16/17 13:31 01/16/17 13:30 97 01/16/17 13:01 01/16/17 13:00 97 01/16/17 12:31 01/16/17 12:30 97 01/16/17 12:02 01/16/17 12:01 01/16/17 12:00 99 01/16/17 11:31 96 01/16/17 11:30 98 01/16/17 11:16 96 01/16/17 11:15 96 01/16/17 11:01 96 01/16/17 11:00 96 01/16/17 10:46 95 01/16/17 10:45 97 01/16/17 10:31 95 01/16/17 10:30 96 01/16/17 10:16 95 01/16/17 10:15 96 01/16/17 10:08 96 01/16/17 10:02 94 01/16/17 10:01 01/16/17 09:50 Intake and Output 01/16/17 01/17/17 01/17/17 21:59 05:59 13:59 Intake Total 24 / 24 200 / 200 946 / 946 Output Total 350 / 350 Balance 24 / 24 -150 / -150 946 / 946 Intake: IV 24 / 24 946 / 946 Cardene 25 MG In Sodium 24 / 24 Chloride 0.9% 240 ml @ 5 MG/HR 50 mls/hr IV ONCE ARELY Rx#:[id number] Oral 200 / 200 Output: Void Amount 350 / 350 Other: # Voids 1 2 # Bowel Movements 1 Weight 204 lb Medical - DS: Data Labs on day of discharge: Labs from last 24 hours 01/17/17 01/17/17 04:20 04:20 WBC 9.1 RBC 5.49 Hgb 16.1 Hct 47.7 MCV 86.9 MCH 29.3 MCHC 33.7 RDW 13.1 Plt Count 270 MPV 8.7 Total Counted 100 Seg Neutrophils % 63 Band Neutrophils % Not Reportable Lymphocytes % 30 Monocytes % (Manual) 4 Eosinophils % (Manual) 3 Platelet Estimate Normal RBC Morphology Normal Sodium 141 Potassium 4.0 Chloride 103 Carbon Dioxide 22 Anion Gap 16.0 BUN 18 Creatinine 1.2 GFR Calculation 61 Glucose 92 Uric Acid 6.1 Calcium 8.9 Phosphorus 3.6 Magnesium 2.1 Total Bilirubin 0.5 Direct Bilirubin < 0.2 GGT 18 AST 18 ALT 20 Alkaline Phosphatase 63 Lactate Dehydrogenase 163 Total Protein 6.7 Albumin 3.5 Globulin 3.2 Albumin/Globulin Ratio 1.1 Triglycerides 141 Cholesterol 188 LDL Cholesterol, Calc 121 H Non-HDL Cholesterol 149 H HDL Cholesterol 39 L Medical - DS: A/P - Patient/Caregiver Discharge Instructions Activity: increase activity as tolerated Diet: Regular Diet Additional Instructions: Follow-up PCP in 5 days-Christian Cordon vascular surgery consult as outpatient to be coordinated by PCP I recommend PCP to closely follow blood pressures and optimize treatment continue aspirin and statin as advised Return to ER if worsening neurological changes, shortness of breath, diarrhea, bleeding Review risk and side effect profile of medications includingaspirin and statin- side effect may include bleeding/myopathy/LFT elevations which can be monitored/ prevented by close follow-up with PCP and monitoring for side effects Refrain from smoking and alcohol Continue diet and activity as advised Discussed importance of medication adherence Please review medication list with patient prior to discharge Please schedule follow-up with PCP/Providers prior to discharge and provide printouts Portions of this chart may have been created with [employer] voice recognition software. Occasional wrong-word or ?sound-like? substitutions may have occurred due to the inherent limitations of voice recognition software. Please read the chart carefully and recognize, using context, where the substitutions have occurred. CC- PCP Prescriptions: Aspirin [Ecotrin] 325 mg PO DAILY #30 tab.ec Atorvastatin [Lipitor] 20 mg PO HS #30 tablet - Problem Maintenance (1) TIA (transient ischemic attack) Status: Acute - Follow up Plan Follow up with: Christian Cordon MD [Primary Care Provider] - 01/29/17 10:00 am Disposition: Home, Self-Care Prognosis: Good Rehab Potential: Good I certify that the patient requires SNF services: No Overall status at discharge: patient is progressing back to baseline Medical - DS: Qual - VTE Deep Vein Thrombosis/Pulmonary Embolism Present on Admission: No
== END 2017-01-17 10:15 | disposition home or self-care (01) | DRG 69 ==
LOC: ED 16:12 → ICU 17:55
PROVIDERS: ADMIT Internal Medicine; ATTEND Internal Medicine